=== PATIENT | male | born 1985 | race Caucasian/White ===

== ENCOUNTER 2025-05-06 02:29 | Emergency (ER) | payer BC, SELFPAY ==
[2025-05-06 02:32] VITALS: BP 139/92
[2025-05-06 02:52] LABS: Hematocrit 43.4 % (39.0-52.0); Hemoglobin 15.9 g/dL (13.0-18.0); Mean Corp Hgb Conc. 36.6 g/dL (33.0-37.0); Mean Corpuscular Volume 88.6 fL (80.0-94.0); Nucleated Red Blood Cells % 0 % (-); Platelet Count 175 10^3/uL (130-400); Red Cell Dist. Width 11.4 % (11.5-14.5)
[2025-05-06 02:56] VITALS: BP 134/86
[2025-05-06 02:58] VITALS: BMI 29.6
[2025-05-06 03:00] VITALS: BP 121/79
[2025-05-06 03:15] LABS: ALT (SGPT) 32 U/L (0-50); AST (SGOT) 31 U/L (17-59); Albumin 4.8 g/dl (3.5-5.0); Alkaline Phosphatase 82 U/L (38-126); Blood Urea Nitrogen 17 mg/dl (9-20); Calcium 9.5 mg/dl (8.4-10.2); Carbon Dioxide 22 mmol/L (22-30); Chloride 104 mmol/L (98-107); Estimated Creatinine Clearance > 125 ml/min; Glucose 114 mg/dl (70-99); Lipase 44 U/L (23-300); Potassium 4.1 mmol/L (3.5-5.1); Sodium 136 mmol/L (135-145); Total Protein 7.8 g/dl (6.3-8.2); eGFR > 60.00
--- NOTE | 2025-05-06 03:36 | ED.GENMED ---
History of Present Illness
<Dm Cates. DO Crescencio Mares Last Filed: 05/06/25 03:39>
General
Chief Complaint: Abdominal Pain
Source: patient
Time Seen by Provider: 05/06/25 03:30
History of Present Illness
History of Present Illness:
40-year-old gentleman presents to the emergency room complaining of abdominal pain, fever and chills. Patient noted this afternoon pain in his periumbilical area when his child jumped on his abdomen. He has a known umbilical hernia which has did
not minimally symptomatic. However when his daughter pushed on that area, severe pain. The pain has persisted. He has no nausea or vomiting. Patient developed fever and chills this evening. He took Tylenol at about 1:30 AM for this. Patient
denies sore throat, cough, urinary symptoms, diarrhea or constipation. Patient denies any previous abdominal surgeries.
Phy Exam
<Dm H. DO Crescencio Mares Last Filed: 05/06/25 03:39>
Physical Exam
Physical Exam:
General: Awake, Alert, Oriented X3. No acute distress.
Vitals: unremarkable
Head: Atraumatic
Eyes: Pupils equal, EOMI
Throat: Airway intact, no exudates
Neck: Trachea midline
Lungs: Clear and equal b/l
Heart: Regular rate, no murmurs
Abd: Soft, periumbilical hernia noted, quite tender to palpation but does seem reducible. There are some tenderness in the lower abdomen and suprapubic region as well., No pulsatile mass
Back: No CVA tenderness
Neuro: Nonfocal
Skin: Warm, dry, no rash
Extremities: pulses equal b/l, no edema
Sepsis
<Dm Cates. DO Crescencio Mares Last Filed: 05/06/25 03:39>
Sepsis Screen
Sepsis Screen: Possible Sepsis
Date: 05/06/25
Time: 03:36
<Cleveland Hurtado, DO - Last Filed: 05/06/25 07:11>
Sepsis Screening
Sepsis Assessment: Sepsis Ruled Out
Sepsis Screen
Sepsis Screen: Sepsis Ruled Out
Date: 05/06/25
Time: 07:11
Course
<Dm Mares, DO - Last Filed: 05/06/25 03:39>
Orders/Labs/Results
Orders:
Orders
05/06/25 02:44
Complete Blood Count/With Diff Urgent
Comprehensive Metabolic Panel Urgent
Lactic Acid Urgent
Lipase Urgent
05/06/25 03:35
Iohexol [Omnipaque] See Protocol PO NOW STA
05/06/25 03:36
CT Abd/pel W Iv And Oral Contr Urgent
Comment:
Reason For Exam: fever, periumbilical pain
0.9% Sodium Chloride 1000 ml [Nss] 1,000 ml IV BOLUS
Ketorolac [Toradol] 15 mg IV NOW STA
05/06/25 04:03
COVID-19 Antigen Urgent
Source: Nasal Swab
Influenza A+B Rapid Molecular Urgent
JOSEPH Source: Nasal Swab
Specimen Description:
05/06/25 04:54
Urinalysis Reflex To Culture Urgent
Date Specimen was Collected: 05/06/25
Time Specimen was Collected: 04:51
Urine Microscopic Reflex Cult Urgent
Abnormal Lab Results
05/06/25 05/06/25
02:44 04:54
MCH 32.4 H pg
(27.0-31.0)
RDW 11.4 L %
(11.5-14.5)
Absolute Lymphs (auto) 0.7 L 10^3/uL
(1.2-3.4)
Neutrophils % 77.5 H %
(42.2-75.2)
Lymphocytes % 13.2 L %
(20.5-51.1)
Glucose 114 H mg/dl
(70-99)
Total Bilirubin 1.4 H mg/dl
(0.2-1.3)
Ur Occult Blood Reflex 1+ A
(Negative)
05/06/25 02:44
05/06/25 02:44
Vital Signs
Initial and Last Documented VS:
Initial Vital Signs
Temp Pulse Resp BP Pulse Ox
38.2 C H 127 28 139/92 97
05/06/25 02:32 05/06/25 02:32 05/06/25 02:32 05/06/25 02:32 05/06/25 02:32
Last Documented Vital Signs
Temp Pulse Resp BP Pulse Ox
38.2 C H 81 19 128/79 97
05/06/25 02:32 05/06/25 06:45 05/06/25 06:45 05/06/25 05:00 05/06/25 06:45
<Cleveland Hurtado, DO - Last Filed: 05/06/25 07:11>
Orders/Labs/Results
Orders:
Orders
05/06/25 02:44
Complete Blood Count/With Diff Urgent
Comprehensive Metabolic Panel Urgent
Lactic Acid Urgent
Lipase Urgent
05/06/25 03:35
Iohexol [Omnipaque] See Protocol PO NOW STA
05/06/25 03:36
CT Abd/pel W Iv And Oral Contr Urgent
Comment:
Reason For Exam: fever, periumbilical pain
0.9% Sodium Chloride 1000 ml [Nss] 1,000 ml IV BOLUS
Ketorolac [Toradol] 15 mg IV NOW STA
05/06/25 04:03
COVID-19 Antigen Urgent
Source: Nasal Swab
Influenza A+B Rapid Molecular Urgent
JOSEPH Source: Nasal Swab
Specimen Description:
05/06/25 04:54
Urinalysis Reflex To Culture Urgent
Date Specimen was Collected: 05/06/25
Time Specimen was Collected: 04:51
Urine Microscopic Reflex Cult Urgent
Abnormal Lab Results
05/06/25 05/06/25
02:44 04:54
MCH 32.4 H pg
(27.0-31.0)
RDW 11.4 L %
(11.5-14.5)
Absolute Lymphs (auto) 0.7 L 10^3/uL
(1.2-3.4)
Neutrophils % 77.5 H %
(42.2-75.2)
Lymphocytes % 13.2 L %
(20.5-51.1)
Glucose 114 H mg/dl
(70-99)
Total Bilirubin 1.4 H mg/dl
(0.2-1.3)
Ur Occult Blood Reflex 1+ A
(Negative)
05/06/25 02:44
05/06/25 02:44
Vital Signs
Initial and Last Documented VS:
Initial Vital Signs
Temp Pulse Resp BP Pulse Ox
38.2 C H 127 28 139/92 97
05/06/25 02:32 05/06/25 02:32 05/06/25 02:32 05/06/25 02:32 05/06/25 02:32
Last Documented Vital Signs
Temp Pulse Resp BP Pulse Ox
38.2 C H 81 19 128/79 97
05/06/25 02:32 05/06/25 06:45 05/06/25 06:45 05/06/25 05:00 05/06/25 06:45
<Dm Mares DO - Last Filed: 05/06/25 03:39>
*Pulse Oximetry
SaO2: 96
Oxygen Mode of Delivery: Room air
<Cleveland Jakub Bryant, DO - Last Filed: 05/06/25 07:11>
*Pulse Oximetry
Patient hypoxic: no
*Critical Care Note
Total Time (30-74mins, 75-104mins- exclusive of procedures): Not Applicable
<Cleveland Rodriguezmike, DO - Last Filed: 05/06/25 07:11>
Update Note
Update Note:
I evaluated the patient at bedside. The CAT scan of the abdomen pelvis with IV contrast was read by vision radiologist as small fat-containing umbilical hernia without containing bowel, there is no evidence for cholecystitis, pancreatitis, SBO,
appendicitis, diverticulitis, or kidney stone. No free air nor fluid collection. Blood work and urinalysis relatively unremarkable. He has some mild periumbilical tenderness and fat-containing hernia noted on exam. His white count is normal and
there is no evidence for urinary tract infection. He came in tachycardic but tachycardia improved while in ED and had heart rate in the 80s on reevaluation at 7:10 AM.
ED Attending Note
<Dm Mares, DO - Last Filed: 05/06/25 03:39>
-
Portions of this chart may have been created with voice recognition software.� Occasional wrong word or��sound alike� substitutions may have occurred due to the inherent limitations of voice recognition software.
Discharge Plan
Departure
Referrals:
UNKNOWN,NO INTERVIEW [Family Provider]
Interventions
Interventions:
*Risk Screen - Suicide Last Done: 05/06/25 02:32
*General Assessment Last Done: 05/06/25 02:32
*Neglect/Abuse Screening Last Done: 05/06/25 02:32
*ED- Fall Risk Assessment Last Done: 05/06/25 02:47
*ED COVID-19 Vaccine History Last Done: 05/06/25 03:07
*ED Influenza Vaccine History Last Done: 05/06/25 03:07
YD-[id number] Assessment Last Done: 05/06/25 03:07
Discharge Date and Time
Print Language: [id number]
[2025-05-06] MEDS: NSS 1000 IV (03:51)
[2025-05-06] MEDS: TORADOL 15 MG IV (03:52)
[2025-05-06] MEDS: OMNIPAQUE 50 ML PO (03:53)
[2025-05-06 04:00] VITALS: BP 132/76
[2025-05-06 04:35] LABS: COVID-19 Antigen Negative (Negative)
[2025-05-06 05:00] VITALS: BP 128/79
[2025-05-06 05:02] LABS: Urine Character Clear (Clear)
[2025-05-06 05:30] LABS: Urine Red Blood Cell 0-2 /HPF (0-2); Urine Squamous Cell None seen /LPF (Few); Urine White Cell None Seen /HPF (0-5)
== END 2025-05-06 07:36 | disposition home or self-care (01) ==
LOC: EMR 02:29
PROVIDERS: EMERGENCY PHYSICIAN Emergency Medicine
DX: K42.9 Umbilical hernia without obstruction or gangrene (principal); R50.9 Fever, unspecified; Z11.52 Encounter for screening for COVID-19
CPT/HCPCS: 96374; 96361; 99284; 74177; 80053; 81003; 81015; 83605; 83690; 85025; 87502; 87811; Q9967